=== PATIENT | female | born 1985 | race Caucasian/White ===

== ENCOUNTER 2019-06-22 06:00 | Inpatient (IN) | payer OTHER ==
[~2019-06-22 06:00] MED LIST: Buffered Lidocaine 1% SYRIN* 1 ML/SYRINGE INTRADERM ONE; Lactated Ringers 1000 ML Bag* 1,000 ML IV SCH; Sodium Citrate/Citric Acid* 15 ML UDC PO ONE
--- OUTSIDE RECORDS SUMMARY | 2019-06-22 06:05 | XMS REPORT | Continuity of Care Document ---
:1985 External Reference #:[id number] Author Name Nicky Jimenez MD Address [address] [facility] [place] [address] Care Team Providers Name Role Phone Mariana Hernandez - Family Care Team Information [employer] Screen Watcher [phone] Problems Active Problems Provider Date Multigravida Kimberly Abdi CNM Onset: 11/10/2018 Social History Type Date Description Comments Sex Unknown Cigarette Use Does Not Smoke Cigarettes ETOH Use Does Not Drink Alcohol Recreational Drug Use Does Not Use Drugs Tobacco Use Start: Unknown Patient has never smoked Smoking Status Reviewed: 06/19/19 Patient has never smoked Seat Belt/Car Seat Always uses seat belt Allergies, Adverse Reactions, Alerts Description No Known Drug Allergies Medications Active Medications SIG Qnty Indications Ordering Provider Date Multi +Dha Unknown 27-0.8-200mg Capsules Ferrous Gluconate 1 po qod Unknown 324(38Fe) mg Tablets Medications Administered in Office Medication SIG Qnty Indications Ordering Provider Date PT SCRN Tbco Id as Non User Nicky Jimenez MD 06/18/2019 Injection PT SCRN Tbco Id as Non User Kimberly Abdi CNM 11/10/2018 Injection Immunizations CPT Code Status Date Vaccine Lot # [id number] Given 04/06/2019 Tetnus, Diptheria Toxoids And Acellular Pertussis, [id number] PT > 7Yrs Old [address]9480 Given 03/11/2019 Influenza Vaccine Quadrivalent Preser/Antibiotic [id number] Free [place] Use 36870 Given 01/03/2015 Tetnus, Diptheria Toxoids And Acellular Pertussis, [id number] PT > 7Yrs Old Vital Signs Date Vital Result Comment 11/20/2018 11:16am BP Systolic 118 mmHg BP Diastolic 60 mmHg Height 62.5 inches 5'2.50" Weight 187.00 lb BMI (Body Mass Index) 33.7 kg/m2 Last Menstrual Period 2030627 4 Parity 1 11/10/2018 1:50pm BP Systolic 130 mmHg BP Diastolic 78 mmHg Height 62.5 inches 5'2.50" Weight 186.00 lb BMI (Body Mass Index) 33.5 kg/m2 Last Menstrual Period 6420953 4 Parity 1 Results Test Acquired Date Facility Test Result H/L Range Note Influenza A & B 06/18/2019 [facility] Flu AB (SEE NOTE) 1 [place] [address] Disclaimer [phone] Influenza A Molecular Negative Negative Influenza B Molecular Negative Negative 2 Laboratory test 06/03/2019 [facility] Genital For SEE RESULT 3 [place] [address] GRP B Strep BELOW [phone] Only Laboratory test 04/06/2019 [facility] Glucose 1 HR 133 mg/dL Normal 70-16 4 [place] [address] Post Prandial 0 [phone] CBC With No Diff 04/06/2019 [facility] White Blood 12.7 High 3.5-1 [place] [address] Count 10^3/uL 0.8 [phone] Red Blood Count 3.68 10^6/uL Low 3.70-4.87 Hemoglobin 11.3 g/dL Low 12.0-16.0 Hematocrit 34 % Low 35-47 Mean Corpuscular Volume 91 fL Normal 80-97 Mean Corpuscular Hemoglobin 31 pg Normal 27-31 Mean Corpuscular HGB Conc 34 g/dL Normal 31-36 Red Cell Distribution Width 14 % Normal 10-15 Platelet Count 221 10^3/uL Normal 150-450 Mean Platelet Volume 8.5 fL Normal 7.4-10.4 Afp,Screen 01/19/2019 [facility] Results Summary [place] [address] [phone] Neural Tube Defect Estimate SEE BELOW 5 Collection Date 01/19/19 Maternal Date of 89 Calculated Age At YAZ 33 years Maternal Weight 187 lbs Insulin Dependent Diabetes No Current Cigarette Smoking Stat non-smoker Patient Race non-Black Number of Fetuses 1 Number of Chorions Monochorionic Ivf No Prev Preg w/Neural Tube Defect No Patient/Father of Baby Has NTD No Initial Or Repeat Testing Initial testing Physician YAZ by LMP 06/27/19 [place] On Collection By Dates SEE BELOW wk,d 6 GA Used In Risk Estimate Dates estimate Afp 27.6 ng/mL Afp MoM 0.77 MoM <2.50 Interpretation See Comment 7 Additional Comments See Comment 8 Recommended Follow Up None. General Test Information See Comment 9 GC/Chlamydia Dna 12/18/2018 [facility] Chlamydia [place] [address] trachomatis Colette [phone] Neisseria gonorrhoeae (GC) Colette Negative Negative Urine Drug 12/18/2018 [facility] Urine Amphetamine Negative ng/ mL 10 Comp 20 [place] [address] [phone] Urine Barbiturates Negative ng/mL 11 Urine Benzodiazepines Negative ng/mL 12 Urine Cocaine Negative ng/mL 13 Urine Phencyclidine Negative ng/mL Cutoff: 25 Urine Tetrahydrocannabinol Negative ng/mL Cutoff: 50 14 Creatinine, Urine 148.2 mg/dL Specific Byron 1.010 pH 6.4 Oxidants Negative 15 Adulterants Comment Normal Codeine, Ur Not Detected ng/mL Cutoff: 25 16 Uphdtnb-6-takk-glucuronide, Ur Not Detected ng/mL 17 Morphine, Ur Not Detected ng/mL Cutoff: 25 18 Hruuwxza-8-pjcn-glucuronide, U Not Detected ng/mL 19 6-monoacetylmorphine, Ur Not Detected ng/mL Cutoff: 25 20 Hydrocodone, Ur Not Detected ng/mL Cutoff: 25 21 Norhydrocodone, Ur Not Detected ng/mL Cutoff: 25 22 Dihydrocodeine, Ur Not Detected ng/mL Cutoff: 25 23 Hydromorphone, Ur Not Detected ng/mL Cutoff: 25 24 Pjenlhgmwqahh1vmcclbelhczpyxz Not Detected ng/mL 25 Oxycodone, Ur Not Detected ng/mL Cutoff: 25 26 Noroxycodone, Ur Not Detected ng/mL Cutoff: 25 27 Oxymorphone, Ur Not Detected ng/mL Cutoff: 25 28 Udsmykdykci-3-gysc-glucuronide Not Detected ng/mL 29 Noroxymorphone, Ur Not Detected ng/mL Cutoff: 25 30 Fentanyl, Ur Not Detected ng/mL Cutoff: 2 31 Norfentanyl, Ur Not Detected ng/mL Cutoff: 2 32 Meperidine, Ur Not Detected ng/mL Cutoff: 25 33 Normeperidine, Ur Not Detected ng/mL Cutoff: 25 34 Naloxone, Ur Not Detected ng/mL Cutoff: 25 35 Ihhvihry-6-snrg-glucuronide, U Not Detected ng/mL 36 Methadone, Ur Not Detected ng/mL Cutoff: 25 37 Eddp, Ur Not Detected ng/mL Cutoff: 25 38 Propoxyphene, Ur Not Detected ng/mL Cutoff: 25 39 Norpropoxyphene, Ur Not Detected ng/mL Cutoff: 25 40 Tramadol, Ur Not Detected ng/mL Cutoff: 25 41 O-desmethyltramadol, Ur Not Detected ng/mL Cutoff: 25 42 Tapentadol, Ur Not Detected ng/mL Cutoff: 25 43 N-desmethyltapentadol, Ur Not Detected ng/mL Cutoff: 50 44 Cgvpsrsddk-vawg-hgoouxaajac, U Not Detected ng/mL 45 Buprenorphine, Ur Not Detected ng/mL Cutoff: 5 46 Norbuprenorphine, Ur Not Detected ng/mL Cutoff: 5 47 Norbuprenorphine glucuronide Not Detected ng/mL Cutoff: 20 48 Opioid Interpretation See Comment 49 1 Suboptimal collection technique may reduce sensitivity of test. Refer to the [facility] Test Catalog for collection information: [email or web address] As with all diagnostic procedures, the laboratory results obtained should be used in conjunction with other clinical information available to the physician, including confirmation by another method, as applicable. 2 Music Minister: [id number] 3 SEE RESULT BELOW Name: MARTA CELESTE : [address]: Justa Lawrence CNM Acct: [id number] Unit: [id number] AGE: 33 Location: [facility] Re06/03/19 SEX: F Status: REG REF SPEC: [id number] MAYURI: 06/03/19-[address] [facility] [address]: ANURAG Harp REQ: [id number] RECD: 06/03/19-8 STATUS: COMP _ SOURCE: CER/VAG/RE SPDESC: ORDERED: Grp B Strp Scrn COMMENTS: [id number] QUERIES: Is Patient Penicillin Allergic? N Is patient penicillin allergic and/or sensitivities needed? N Provider Requisition # C77#[id number]_ Procedure Result Reported Site Group B Strep Culture Screen Final 06/05/19- 0925 ML Group B Strep Screen Positive Organism 1 STREP GROUP B Susceptibility testing of penicillins and other B-lactams approved by FDA for treatment of Streptococcus pyogenes (Group A Strep) and Streptococcus agalactiae (Group B Strep) is not necessary for clinical purposes and need not be done routinely, since as with vancomycin, resistant strains have not been recognized. (CLSI I903-R44;p.66) Positive isolates will be saved for one week. Please call the Microbiology Laboratory if further susceptibility testing is needed. * - [facility] . END OF REPORT DEPARTMENT OF PATHOLOGY, [address] [place] [address] Xavi Brady M.D. Director [facility] # [id number] RESULT: 6 RESULT: 17,2 7 RESULT: Screen negative for neural tube defects. 8 RESULT: Reviewed by Neva Schwab,Ph.D. 9 This screening provides an estimation of risk, not a diagnosis. Incorrect or incomplete information may significantly alter results. Results may be unreliable in twin pregnancies with a demise. Results are not available for pregnancies with triplets and higher-order multiples. A positive result occurs when the AFP MoM equals or exceeds 2.5. Screen results and family history influence individual risk. If there is a family history of a neural tube defect, chromosome abnormality, or other inherited condition, consider the option of a genetic consultation. For further information, please contact the maternal screening laboratory at . ADDITIONAL INFORMATION This test was developed and its performance characteristics determined by [facility] in a manner consistent with CLIA requirements. This test has not been cleared or approved by the U.S. Food and Drug Administration. Test Performed by: [facility] [address] [place] [address] Pediatrics Physician: Biju Bach M.D. Ph.D.; CLIA# [id number] 10 REFERENCE VALUE Cutoff: 500 11 REFERENCE VALUE Cutoff: 200 12 REFERENCE VALUE Cutoff: 100 13 REFERENCE VALUE Cutoff: 150 14 ADDITIONAL INFORMATION This report is intended for use in clinical monitoring or management of patients. It is not intended for use in employment-related testing. Test Performed by: [facility] [address] [place] [address] 15 REFERENCE VALUE Cutoff: 200 mg/L 16 Tylenol 3 17 Metabolite of codeine REFERENCE VALUE Cutoff: 100 18 Mary Ingram, MS Contin; Also a minor metabolite (10%) of codeine and can be seen in low concentrations (<2,000 ng/mL) with poppy seed ingestion. 19 Metabolite of morphine REFERENCE VALUE Cutoff: 100 20 Metabolite of heroin 21 Lortab, [place], Vicodin; Also a very minor metabolite of codeine and impurity (<1%) of oxycodone. 22 Metabolite of hydrocodone 23 Metabolite of hydrocodone 24 Dilaudid, Exalgo; Also a metabolite of hydrocodone and a minor (<5%) metabolite of morphine. 25 Metabolite of hydromorphone REFERENCE VALUE Cutoff: 100 26 Endocet, Percocet, Oxycontin 27 Metabolite of oxycodone 28 Numorphan, Opana; Also a metabolite of oxycodone. 29 Metabolite of oxymorphone REFERENCE VALUE Cutoff: 100 30 Metabolite of oxymorphone 31 Actiq, Duragesic, Fentora 32 Metabolite of fentanyl 33 Demerol 34 Metabolite of meperidine 35 Narcan 36 Metabolite of naloxone REFERENCE VALUE Cutoff: 100 37 Dolophine 38 Metabolite of methadone 39 Darvon, Darvocet 40 Metabolite of propoxyphene 41 Tradol, Ultram, Ultracet 42 Metabolite of tramadol 43 Nucynta 44 Metabolite of tapentadol 45 Metabolite of tapentadol REFERENCE VALUE Cutoff: 100 46 Buprenex, Suboxone 47 Metabolite of buprenorphine 48 Metabolite of buprenorphine 49 No opioids were detected. The absence of expected drug(s) and/or drug metabolite(s) may indicate non-compliance, altered pharmacokinetics, inappropriate timing of specimen collection relative to drug administration, diluted/adulterated urine, or limitations of testing. ADDITIONAL INFORMATION This test was developed and its performance characteristics determined by [facility] in a manner consistent with CLIA requirements. This test has not been cleared or approved by the U.S. Food and Drug Administration. Procedures Date Code Description Status 06/03/2019 85272 Echography Uterus Limited Completed 04/17/2019 75949 Biophysical Profile W/ NST Completed 04/17/2019 73040 Biophysical Profile W/ NST Completed 02/10/2019 88281 Echography Uterus Complete Completed Medical Devices Description No Information Available Encounters Type Date Location Provider Dx Diagnosis Office Visit 06/18/2019 [facility] Nicky Jimenez, O34.211 Matern care for low 10:15a MD transverse scar from prev del Assessments Date Code Description Provider 06/18/2019 O34.211 Maternal care for low transverse scar from Nicky Jimenez MD previous delivery 06/09/2019 Z34.83 Encounter for supervision of other normal Justa Lawrence CNM , third trimester 06/03/2019 Z34.83 Encounter for supervision of other normal Jusat Lawrence CNM , third trimester 05/18/2019 O34.211 Maternal care for low transverse scar from Gilson Rivers JR, DO previous delivery 05/04/2019 Z36.9 Encounter for screening, Carito Cleaning MD unspecified 04/23/2019 O36.8331 Maternal care for abnormalities of the Alec Burkett CNM heart rate or rhythm, third trimester, fetus 1 04/17/2019 Z34.82 Encounter for supervision of other normal Garret Self MD , second trimester 04/17/2019 O36.8331 Maternal care for abnormalities of the Garret Self MD heart rate or rhythm, third trimester, fetus 1 04/17/2019 Z34.82 Encounter for supervision of other normal Ultrasounds , second trimester 04/06/2019 Z36.9 Encounter for screening, Norman Godoy M.D. unspecified 04/06/2019 Z36.9 Encounter for screening, Laboratory unspecified 04/06/2019 Z23 Encounter for immunization Garret Self MD 04/06/2019 O34.211 Maternal care for low transverse scar from Garret Sefl MD previous delivery 03/11/2019 Z23 Encounter for immunization Nicky Jimenez MD 03/11/2019 Z36.9 Encounter for screening, Nicky Jimenez MD unspecified 02/10/2019 Z36.3 Encounter for screening for Nicky Jimenez MD malformations 02/10/2019 Z34.82 Encounter for supervision of other normal Norman Godoy M.D. , second trimester 02/10/2019 Z36.3 Encounter for screening for Ultrasounds malformations 01/19/2019 Z36.9 Encounter for screening, Nicky Jimenez MD unspecified 01/19/2019 O34.211 Maternal care for low transverse scar from Nicky Jimenez MD previous delivery 01/19/2019 Z36.9 Encounter for screening, Laboratory unspecified 12/18/2018 O34.211 Maternal care for low transverse scar from Kimberly Abdi CNM previous delivery Plan of Treatment Future Appointment(s):07/22/2019 1:30 pm - Nicky Jimenez MD at [facility]06/29/2019 1:15 pm - Lola Porter CNM at [facility]06/22/2019 7 :45 am - Kimberly Abdi CNM at [place] [id number]/22/2019 7:45 am - [facility]y [facility] MD at [facility]/27/2020 - Nicky Jimenez MDO34.211 Maternal care for low transverse scar from previous deliveryComments:Pt desires repeat section along with tubal ligation. Pt accepts risk associated with surgery to include but not limited to infection, bleeding, damage to internal organs, pain, scarring, failure of tubal ligation with risk of ectopic . Consent for personally reviewed and signed withpatient. Functional Status Description No Information Available Mental Status Description No Information Available Referrals Description No Information Available
[2019-06-22] MEDS ORDERED: ceFOXitin 2 GM IVPREMIX* 2 GM/50 ML BAG IVPB ONE (06:37)
[2019-06-22] MEDS ORDERED: Scopolamine 1.5 mg* PATCH TRANSDERM SCH (07:24)
[2019-06-22 07:31] LABS: Urine Benzodiazepine Screen None Detected (None Detect); Urine Buprenorphine Screen None Detected (None Detect); Urine Hydrocodone Screen None Detected (None Detect); Urine Opiates Screen None Detected (None Detect)
[2019-06-22] MEDS ORDERED: Morphine PF AMP (0.5MG/ML)* 5 MG/10 ML AMP ONE (07:35)
[2019-06-22] MEDS ORDERED: Phenylephrine 40 MCG/ML SYRINGE ONE (07:36)
[2019-06-22] MEDS ORDERED: OXYTOCIN* 10 UNITS/ML 1 ML VIAL ONE (07:37)
[2019-06-22] MEDS ORDERED: Ondansetron INJ* 2 MG/ML VIAL ONE (07:37)
[2019-06-22] MEDS ORDERED: Ketorolac INJ* 30 MG/ML 1 ML VIAL ONE (08:38)
[2019-06-22] MEDS ORDERED: fentaNYL* 50 MCG/ML 2 ML VIAL (100 MCG VIAL) ONE (08:42)
[2019-06-22] MEDS ORDERED: fentaNYL* 50 MCG/ML 2 ML VIAL (100 MCG VIAL) IV PRN (08:56)
[2019-06-22] MEDS ORDERED: Naloxone* 0.4 MG/ML 1 ML VIAL IV PRN ×2 (08:56→08:58)
[2019-06-22] MEDS ORDERED: oxyCODONE/Acetamin 5/325 MG* TAB PO PRN ×2 (08:58)
[2019-06-22] MEDS ORDERED: Ketorolac INJ* 30 MG/ML 1 ML VIAL IV PRN (08:58)
[2019-06-22] MEDS ORDERED: Ondansetron INJ* 2 MG/ML VIAL IV PRN (08:58)
[2019-06-22] MEDS ORDERED: Nalbuphine* 10 MG/ML 1 ML VIAL IV PRN (08:58)
[2019-06-22] MEDS ORDERED: Witch Hazel PAD* JAR TOPICAL PRN (09:22)
[2019-06-22] MEDS ORDERED: Glycerin ADULT SUPP PR PRN (09:22)
[2019-06-22] MEDS ORDERED: Dibucaine 1% 28.35 GM TUBE PR PRN (09:22)
[2019-06-22] MEDS ORDERED: Lactated Ringers 1000 ML Bag* 1,000 ML IV SCH (10:00)
[2019-06-22] MEDS ORDERED: Oxytocin in LR* 20 UNITS/1,000 ML BAG IVPB SCH (10:00)
[2019-06-22] MEDS ORDERED: DiMENhydriNATE IV* 50 MG/ML VIAL ONE (10:21)
[2019-06-22] MEDS ORDERED: DiMENhydriNATE IV* 50 MG/ML VIAL IV PUSH ONE (10:30)
[2019-06-22] MEDS: Simethicone TAB* 80 MG TAB.CHEW PO SCH ×3 (15:02→19:58)
[2019-06-22] MEDS: Docusate CAP* 100 MG PO SCH ×2 (15:02→19:59)
--- NOTE | 2019-06-22 23:50 | OP ---
DATE OF OPERATION: 06/22/19 - ROOM #116 DATE OF : [birth year] SURGEON: Nicky Jimenez MD ACCELERATOR TECHNICIAN: Gilson Rivers DO ANESTHESIOLOGIST: Dr. Curtis. ANESTHESIA: Spinal. PRE-OP DIAGNOSES: 1. Desires repeat section. 2. Desires permanent sterility. OPERATIVE PROCEDURE: Repeat low transverse section, bilateral tubal ligation with fimbriectomy. ESTIMATED BLOOD LOSS: 900 cc. URINE OUTPUT: 100 cc of clear yellow urine. FLUIDS: 2200 cc of crystalloid. FINDINGS: Revealed a vertex baby girl, Apgars were 9 at 1 minute and 9 at 5 minutes, weight was 9 pounds 12 ounces. No meconium. No nuchal cord. Normal- appearing tubes and ovaries bilaterally. Small endometrial implant, anterior uterine serosa. Normal-appearing placenta, 3-vessel cord, manually extracted intact. Normal uterine cavity without evidence of retained membranes or placental tissue. COMPLICATIONS: None apparent. DISPOSITION: Stable to recovery room. DESCRIPTION OF PROCEDURE: The patient was placed in dorsal lithotomy position. The abdomen was prepped and draped in a sterile standard fashion. The patient was identified with universal protocol. After excellent level of anesthesia, an incision was made through prior incision. This was carried down through the fascia. Fascia was scored in the midline, extended laterally and superiorly using curved Arango scissors, superiorly and inferiorly with blunt and sharp dissection from the rectus muscle. Peritoneum was entered bluntly. Peritoneal incision was extended bluntly. The bladder retractor was inserted. Allis was used to tent up on the lower uterine segment. An incision was made with a scalpel. This was carried down through to membranes. The uterine incision was extended laterally and superiorly using bandage scissors. Amniotomy was created for clear fluid. Infant was delivered vertex. No nuchal cord. No meconium. Anterior and posterior shoulder delivered. Cord was allowed to pulse for a minute. Cord was then doubly clamped and cut, and the was handed off to waiting sign writer hand. Appropriate cord blood was obtained. Placenta was then manually extracted, 3-vessel cord, intact. Uterus was exteriorized. Cavity was wiped clean, noted to be free of any membranes or placental tissue. The uterine incision itself was reapproximated, first layer running locked, second layer running imbricated 0 Vicryl. Attention was then focused to tubal ligation. The patient confirmed again that she wanted permanent sterility. A Linda was placed first on the left fallopian tube and the distal fimbria and distal third of the tube was clamped using a Sindi. Free 2-0 Vicryl, then Ashleigh 2-0 Vicryl suture was applied and the specimen was removed, which included distal third of the tube and fimbria. This process was repeated in the exact same fashion on the right side. Uterus was returned intraabdominally. Colic gutters were lavaged. Hemostasis was assured at the fimbriectomy sites bilaterally. Hysterotomy site was confirmed to be hemostatic. The peritoneum was then reapproximated using 3-0 Vicryl in a running fashion. The fascia was then reapproximated after adequate hemostasis was assured in the subfascial plane. The fascia was then reapproximated with 0 Vicryl x2. The subcu was lavaged, hemostasis assured, and subcuticular Camper' s fascia stitch was placed using 2-0 Vicryl in an interrupted fashion. The skin was then reapproximated with a 4-0 Monocryl. Steris and Mastisol were applied. All sponge, instrument, and blade counts were correct throughout the case. The patient tolerated the procedure well and went to recovery room in stable condition. [id number]/[facility] #: [id number] COURTNEY
[2019-06-22] MEDS ORDERED: Acetaminophen TAB* 325 MG PO PRN (23:55)
[2019-06-23] MEDS: Ibuprofen TAB* 600 MG PO PRN ×4 (03:36→21:13)
[2019-06-23 06:12] LABS: ABS Basophils 0.1 10^3/ul (0-0.2); ABS Eosinophils 0.1 10^3/ul (0-0.6); ABS Lymphocytes 2.2 10^3/ul (1.0-4.8); ABS Monocytes 1.4 10^3/ul (0-0.8); ABS Neutrophils 11.5 10^3/ul (1.5-7.7); Eosinophil % 0.5 %; Hematocrit 27 % (35-47); Hemoglobin 9.3 g/dL (12.0-16.0); Lymphocyte % 14.7 %; Mean Corpuscular HGB Conc 34 g/dL (31-36); Mean Corpuscular Hemoglobin 30 pg (27-31); Mean Corpuscular Volume 90 fL (80-97); Mean Platelet Volume 8.1 fL (7.4-10.4); Platelet Count 216 10^3/uL (150-450); Red Blood Count 3.06 10^6 /uL (3.70-4.87); Red Cell Distribution Width 14 % (10-15); White Blood Count 15.3 10^3/uL (3.5-10.8)
[2019-06-23] MEDS: Docusate CAP* 100 MG PO SCH ×3 (08:07→21:07)
[2019-06-23] MEDS: Simethicone TAB* 80 MG TAB.CHEW PO SCH ×3 (08:07→21:06)
[2019-06-23] MEDS: Ferrous Gluconate TAB* 324 MG TAB PO SCH ×2 (08:07→21:06)
[2019-06-23] MEDS: oxyCODONE TAB* 5 MG TAB PO PRN ×3 (10:32→21:07)
[2019-06-24] MEDS: Ibuprofen TAB* 600 MG PO PRN ×2 (04:33→11:04)
[2019-06-24] MEDS: Simethicone TAB* 80 MG TAB.CHEW PO SCH (08:19)
[2019-06-24] MEDS: Ferrous Gluconate TAB* 324 MG TAB PO SCH (08:19)
[2019-06-24] MEDS: Docusate CAP* 100 MG PO SCH (08:19)
[2019-06-24] MEDS: oxyCODONE TAB* 5 MG TAB PO PRN (09:09)
[2019-06-24 09:20] VITALS: BP 120/59
[2019-06-25] MEDS ORDERED: Scopolamine PATCH Remove* 1 NOTE MISC PATCH OFF SCH (07:30)
== END 2019-06-24 11:48 | disposition home or self-care (01) | DRG 540 ==
LOC: MCHOB 06:00
PROVIDERS: ADMIT Obstetrics & Gynecology; ATTEND Obstetrics & Gynecology
PROC: 4A1HXCZ Monitoring of Products of Conception, Cardiac Rate, External Approach (ICD-10-PCS; 2019-06-22)
PROC: 0UB70ZZ Excision of Bilateral Fallopian Tubes, Open Approach (ICD-10-PCS; 2019-06-22)
PROC: 10D00Z1 Extraction of Products of Conception, Low, Open Approach (ICD-10-PCS; principal; 2019-06-22 07:50)
DX: O34.211 Maternal care for low transverse scar from previous cesarean delivery (principal); O90.81 Anemia of the puerperium; O99.824 Streptococcus B carrier state complicating childbirth; N80.0 Endometriosis of uterus; O34.80 Maternal care for other abnormalities of pelvic organs, unspecified trimester; Z3A.39 39 weeks gestation of pregnancy; Z37.0 Single live birth; Z30.2 Encounter for sterilization
CPT/HCPCS: 36415; 80307; 85025; 88302; A9270-GY; G0480; J0694; J1240; J1885; J2405; J2590; J3010